=== PATIENT | female | born 1955 | race Caucasian/White ===

== ENCOUNTER → 2020-05-17 | Outpatient (CLI) | payer MEDICARE, OTHER ==
[~2020-05-17] MED LIST: LORA10CA PO
== END | disposition home or self-care (01) ==
LOC: LAB 09:03
PROVIDERS: ATTEND Registered Nurse
DX: Z01.812 Encounter for preprocedural laboratory examination (principal); Z12.11 Encounter for screening for malignant neoplasm of colon; Z20.828 Contact with and (suspected) exposure to other viral communicable diseases
CPT/HCPCS: C9803; U0003; 36415

== ENCOUNTER → 2020-05-21 | Day surgery (SDC) | payer MEDICARE, OTHER ==
[~2020-05-21] MED LIST changes: +IPRATRPIUM/ALBUTEROL 0.5/2.5MG 3 ML NEBU. NEB PRN; +IV RINGERS SOLUTION,LACTATED 1,000 ML IV SCH; +MIDAZOLAM HCL PF 2 MG/2 ML VIAL. IV ONE; +ONDANSETRON PF 4 MG/2 ML VIAL. IV PRN; +PROPOFOL 10,000 MCG/ML (20ML) VIAL IV ONE
[2020-05-21 08:36] VITALS: BP 129/71
--- NOTE | 2020-05-22 18:06 | PATHOLOGY ---
[facility] Accession Number: [id number] . 01 Material submitted: . PART A: sigmoid colon - SIGMOID POLYP PART B: cecum - CECUM POLYP PART C: colon - TRANSVERSE POLYP. Modifiers: transverse . 02 Diagnosis: A. Colon biopsies, sigmoid polyps: - Tubular adenoma. - Small hyperplastic polyp. . B. Colon biopsy, cecal polyp: - Mixed hyperplastic/adenomatous polyp. . C. Colon biopsies, transverse colon polyps: - Tubular adenoma. - Prominent mucosal fold with mucosal-associated lymphoid aggregates. (JPM:[facility] 05/22/2020) [facility] 05/22/2020 0935 Local . 02 Comment: There is no high-grade dysplasia or evidence of malignancy. (JPM:[facility] 05/22/2020) . 02 Electronically signed: . Mike Patel MD, Pathologist NPI- [id number] . 01 Gross description: . A. The specimen is received in formalin, labeled "Resendiz, Maria L, sigmoid polyp" and consists of 2 segments of pink-rdz tissue measuring 0.3 x 0.3 cm and 0.4 x 0.2 cm as well as a polypoid segment of pink tissue measuring 0.7 x 0.5 x 0.4 cm. The segment is inked bisected and they are entirely submitted in A1. . B. The specimen is received in formalin, labeled "Resendiz, Maria L, cecum polyp" and consists of a polypoid segment of pink tissue measuring 0.8 x 0.5 x 0.3 cm. The margin is inked black and it is entirely submitted in B1. . C. The specimen is received in formalin, labeled "Resendiz, Maria L, transverse polyp x2" and consists of 2 fragments of pink-rdz tissue measuring 0.3 x 0.3 cm and 0.5 x 0.3 cm which are entirely submitted in C1. (SDY; 05/21/2020) SYU/SYU 05/21/2020 1620 Local . 02 Pathologist provided ICD-10: D12.5, D12.3, K63.5 . 02 CPT . 195874, [id number], [id number] Specimen Comment: A courtesy copy of this report has been sent to [phone], [phone] Specimen Comment: [id number] Specimen Comment: Report sent to / DR CAPPS Performed at: 01 [facility] [address], [place] [id number] MD Edwin Servin MD Phone: [phone] Performed at: 02 [facility] [address], [place] [id number] MD Mike Patel MD Phone: [phone]
== END | disposition home or self-care (01) ==
LOC: SURG 06:24
PROVIDERS: ATTEND Internal Medicine Gastroenterology
DX: Z12.11 Encounter for screening for malignant neoplasm of colon (principal); D12.5 Benign neoplasm of sigmoid colon; D12.0 Benign neoplasm of cecum; D12.3 Benign neoplasm of transverse colon; K63.89 Other specified diseases of intestine; F17.210 Nicotine dependence, cigarettes, uncomplicated; J30.2 Other seasonal allergic rhinitis; Z86.010 Personal history of colon polyps; Z80.0 Family history of malignant neoplasm of digestive organs; Z98.890 Other specified postprocedural states; Z79.899 Other long term (current) drug therapy; Z90.710 Acquired absence of both cervix and uterus
CPT/HCPCS: 45380; 45385; 88305; J2704; J7120; 45381

== ENCOUNTER 2021-07-14 18:36 | Emergency (ER) | payer MEDICARE, OTHER ==
[~2021-07-14] VITALS: Ht 163.8 cm; Wt 54.0 kg
[~2021-07-14 18:36] MED LIST changes: -IPRATRPIUM/ALBUTEROL 0.5/2.5MG 3 ML NEBU. NEB PRN; -IV RINGERS SOLUTION,LACTATED 1,000 ML IV SCH; -MIDAZOLAM HCL PF 2 MG/2 ML VIAL. IV ONE; -ONDANSETRON PF 4 MG/2 ML VIAL. IV PRN; -PROPOFOL 10,000 MCG/ML (20ML) VIAL IV ONE
--- NOTE | 2021-07-14 18:52 | PHYS DOC ---
Past History Past Medical History: Arthritis, Bronchitis, Cancer Smoking: Cigarettes General Adult EDM: Chief Complaint: CHEST PAIN HPI: HPI: ".. I ve had some chest discomfort.. not really pain. but more of an ache... all day.. heart rate really fast.. and now much more short of breath the last couple hours.. " Patient is a 65 year old female who presents with above hx seen in [facility]. Patient complaining of increase heart, chest discomfort all day, and now shortness of breath the last two hours. Patient eventually moved to [facility]. Patient denies any changes in meds. Patient denies any specific ill contacts. Patient has not had previous cardiac issues. Patient does smoke. Patient does have a history of hx. basal cell skin cancer which was has been removed. Patient does have a history of anxiety. Patient denies any recent travel. Patient has completed COVID vaccination and January of this year. No specific ill contacts. No history of immunosuppression. Pt. follows with Rosenda Castellano for care. Review of Systems: Review of Systems: Constitutional: Denies fever or chills Eyes: Denies change in visual acuity HENT: Denies nasal congestion or sore throat Respiratory: Complains of dyspnea last 2 hours. Cardiovascular: Complains of chest discomfort GI: Denies abdominal pain,. Complains of nausea. Denies, vomiting, bloody sto ols or diarrhea : Denies dysuria Musculoskeletal: Denies back pain or joint pain Integument: History of skin cancer Neurologic: Denies headache, focal weakness or sensory changes Endocrine: Denies polyuria or polydipsia Lymphatic: Denies swollen glands Psychiatric: Denies depression or anxiety Family History: Family History: Noncontributory to presentation Current Medications: Current Meds: See nursing for home meds Allergies: Allergies: Allergies Coded Allergies Type Severity Reaction Last Updated Verified No Known Drug Allergies 05/21/20 No Physical Exam: PE: Constitutional: Moderate acute distress, non-toxic appearance. [] HENT: Normocephalic, atraumatic, bilateral external ears normal, oropharynx moist, no oral exudates, nose normal. Our left scalp and forehead Eyes: PERRLA, EOMI, conjunctiva normal, no discharge. [] Neck: Normal range of motion, no tenderness, supple, no stridor. [] Cardiovascular: Tachycardia heart rate regular rhythm, no murmur []. Bedside monitor shows a sinus tachycardia 104. Patient having mild hypertension as per monitor in the rage of 185/98 Lungs & Thorax: Bilateral breath sounds clear to auscultation [] Abdomen: Bowel sounds normal, soft, no tenderness, no masses, no pulsatile masses. [] Skin: Warm, dry, no erythema, no rash. [] Back: No tenderness, no CVA tenderness. [] Extremities: No tenderness, no cyanosis, no clubbing, ROM intact, no edema. No cording appreciated Neurologic: Alert and oriented X 3, normal motor function, normal sensory function, no focal deficits noted. [] Psychologic: Affect anxious, judgement normal, mood normal. [] Current Patient Data: Labs: Note labs are still not crossing over,,,-review of significant labs shows normal CBC, with macrocytic indices of 105 and elevated MCH of 36, sodium 132, creatinine 0.7 BUN 15 glucose elevated at 16 7. Patient had 2 - tropes 0.017. Mild elevation D-dimer 0.58 remainder of coags normal. Rapid Covid was negative EKG: EKG: My interpretation EKG shows a sinus tachycardia 104 bpm. Does have some left axis changes. Overall low voltage. But no findings of acute STEMI of contralateral changes. Time of EKG is 1844 hrs. My interpretation of second EKG shows a sinus rhythm at 90 bpm. There is same leftward changes as on EKG #1. No acute interval changes. There is some movement artifact. There is some mild lead changes which are attributed to replacement of the leads. No findings of acute STEMI of contralateral changes time of this EKG is 2350 hrs. [] Radiology/Procedures: Radiology/Procedures: [address] [address] IMAGING REPORT Signed PATIENT: DOUG PABLO ACCOUNT: [id number] : 1955 LOCATION: ER AGE: 65 SEX: F EXAM STATUS: REG ER ORD. PHYSICIAN: TYLER NGO MD REASON: cp PROCEDURE: PORTABLE CHEST 1V Exam: Chest one view INDICATION: Chest pain TECHNIQUE: Frontal view of the chest Comparisons: None FINDINGS: The cardiomediastinal silhouette and pulmonary vessels are within normal limits. The lung and pleural spaces are clear. IMPRESSION: No acute cardiopulmonary process. Electronically signed by: Esequiel Cramer MD (07/14/2021 7:34 PM) [facility] DICTATED AND SIGNED BY: ESEQUIEL CRAMER MD DATE: 07/14/211932 CC: TYLER NGO MD; ROSENDA CASTELLANO ~MTH0 0 [][address] [address] IMAGING REPORT Signed PATIENT: DOUG PABLO ACCOUNT: [id number] : 1955 LOCATION: ER AGE: 65 SEX: F EXAM STATUS: REG ER ORD. PHYSICIAN: TYLER NGO MD REASON: chest wall pain , dyspnea, tachy, OMNI 350, 75ml PROCEDURE: CT ANGIOGRAPHY CHEST Exam: CT of chest with contrast INDICATION: Chest wall pain TECHNIQUE: Sequential axial images through the chest obtained following the administration of 75 mL of Omni 350 IV contrast. Sagittal and coronal reformatted images were reconstructed from the axial data and reviewed. 3-D reformatted images were reconstructed from the axial data and reviewed. Exposure: One or more of the following in the visualized dose reduction techniques were utilized for this examination: 1. Automated exposure control 2. Adjustment of the MA and/or KV according to patient size 3. Use of iterative of reconstructive technique Comparisons: Chest x-ray same day FINDINGS: Visualized portions of the thyroid are unremarkable. There several prominent and mildly enlarged bilateral hilar and paratracheal lymph nodes. Heart size is normal. No pericardial effusion. Thoracic aorta has a normal course and caliber. Pulmonary artery is not enlarged. No pulmonary embolus identified within the main, lobar or segmental pulmonary arteries. Airways are patent. Moderate centrilobular emphysematous change noted predominantly at the lung apices. No consolidation or pneumothorax. Several 2 to 3 mm pulmonary nodules noted bilaterally. No suspicious lung nodules are identified. No pleural effusion or thickening. Visualized upper abdomen is unremarkable. Mild compression fracture involving the superior endplate of L1 with less than 25% height loss. IMPRESSION: 1. No pulmonary embolus identified within the main, lobar or segmental pulmonary arteries. 2. Mild compression of the superior endplate of L1 with less than 25% height loss. This is age indeterminate. Correlate with point tenderness. 3. Several 2 to 3 mm pulmonary nodules in the lungs bilaterally. Correlate with risk factors for yearly lung cancer screening. Electronically signed by: Esequiel Cramer MD (07/14/2021 9:19 PM) [facility] DICTATED AND SIGNED BY: ESEQUIEL CRAMER MD DATE: 07/14/212114 CC: TYLER NGO MD; ROSENDA CASTELLANO ~MTH0 0 Heart Score: C/O Chest Pain: Yes HEART Score for Chest Pain: HEART Score for Chest Pain Response (Comments) Value History Moderately Suspicious 1 ECG Nonspecific Repolarizatio 1 Age > 65 2 Risk Factors 1 or 2 Risk Factors 1 Troponin < Normal Limit 0 Total 5 Risk Factors: Risk Factors: DM, Current or recent (<one month) smoker, HTN, HLP, family history of CAD, obesity. Risk Scores: Score 0 - 3: 2.5% MACE over next 6 weeks - Discharge Home Score 4 - 6: 20.3% MACE over next 6 weeks - Admit for Clinical Observation Score 7 - 10: 72.7% MACE over next 6 weeks - Early Invasive Strategies Course & Med Decision Making: Course & Med Decision Making Pertinent Labs and Imaging studies reviewed. (See chart for details) While under evaluation in the emergency department patient's symptoms gradually improved. Pt. requesting discharge, does not want admission at this time. Her hypertension seemed to resolve. She had negative tropes x2 and no acute morphology changes on her EKG x2. Patient did get a CT that showed no findings of pulmonary embolism. There are findings of pulmonary nodules and bilateral hilar adenopathy. Does have findings of emphysema. . Did find a compression fracture at L1-less than 25%-suspect this may be due to old trauma such as being thrown off a horse. This area is not currently tender. Patient to review these work-ups with her primary care. Follow-up as a must. Recommend patient take a daily aspirin. Recommend patient get outpatient stress testing. Recommend patient to stop smoking. If blood pressure remains elevated to consider antihypertensive therapy. This may all be in part a viral infection and/or bronchitis. Patient return if any concerns. Recommend patient take a daily B complex vitamin. Impression: 1. Chest discomfort 2. Dyspnea-suspect bronchitis/viral presentation 3. Tobacco abuse 4. Emphysema 5. Has history of basal cell carcinoma 6. Macrocytic 105 and hyperchromic 36 indices 7. Tachycardia 8. Compression fracture at L1-suspect old trauma [] Dragon Disclaimer: Dragon Disclaimer: This electronic medical record was generated, in whole or in part, using a voice recognition dictation system. Departure Departure: Referrals: ROSENDA CASTELLANO (PCP) [place] Disclaimer This chart was dictated in whole or in part using Voice Recognition software in a busy, high-work load, and often noisy Emergency Department environment. It may contain unintended and wholly unrecognized errors or omissions. Dragon Disclaimer This chart was dictated in whole or in part using Voice Recognition software in a busy, high-work load, and often noisy Emergency Department environment. It may contain unintended and wholly unrecognized errors or omissions. TYLER NGO MD Jul 14, 2021 18:52
[2021-07-14] MEDS ORDERED: ASPIRIN CHEWABLE 81 MG TABLET. PO ONE (19:00)
[2021-07-14] MEDS ORDERED: IV RINGERS SOLUTION,LACTATED 1,000 ML IV SCH (19:00)
[2021-07-14 19:28] LABS: BASO # 0.1 x10^3/uL (0.0-0.2); BASO % 1 % (0-3); EOS # 0.1 x10^3/uL (0.0-0.7); EOS % 1 % (0-3); HEMATOCRIT 43.1 % (36.0-47.0); HEMOGLOBIN 14.8 g/dL (12.0-15.5); LYMPH # 1.8 x10^3/uL (1.0-4.8); LYMPH % 28 % (24-48); MEAN CORPUSCULAR HEMOGLOBIN 36 pg (25-35); MEAN CORPUSCULAR HGB CONC 34 g/dL (31-37); MEAN CORPUSCULAR VOLUME 105 fL (79-100); MONO # 0.5 x10^3/uL (0.0-1.1); MONO % 8 % (0-9); NEUT # 4.1 x10^3uL (1.8-7.7); NEUT % 63 % (31-73); PLATELET COUNT 217 x10^3/uL (140-400); RED BLOOD COUNT 4.13 x10^6/uL (3.50-5.40); RED CELL DISTRIBUTION WIDTH 13.3 % (11.5-14.5); WHITE BLOOD COUNT 6.6 x10^3/uL (4.0-11.0)
[2021-07-14 19:35] LABS: CALCIUM 9.2 mg/dL (8.5-10.1); CREATININE 0.7 mg/dL (0.6-1.0); GFR 83.7
--- NOTE | 2021-07-14 19:37 | RAD ---
Exam: Chest one view INDICATION: Chest pain TECHNIQUE: Frontal view of the chest Comparisons: None FINDINGS: The cardiomediastinal silhouette and pulmonary vessels are within normal limits. The lung and pleural spaces are clear. IMPRESSION: No acute cardiopulmonary process. Electronically signed by: Esequiel Khan MD (07/14/2021 7:34 PM) [place]
[2021-07-14 19:47] LABS: ALBUMIN 3.9 g/dL (3.4-5.0); DIRECT BILIRUBIN 0.1 mg/dL (0.0-0.2); MAGNESIUM 1.8 mg/dL (1.8-2.4); TOTAL BILIRUBIN 0.4 mg/dL (0.2-1.0)
[2021-07-14] MEDS ORDERED: KETOROLAC 30 MG/ML VIAL. IVP ONE (20:30)
[2021-07-14] MEDS ORDERED: CONTRAST GIVEN. MC PRN (20:45)
[2021-07-14] MEDS ORDERED: IOHEXOL 350 MG/ML 100 ML VIAL. IV ONE (21:00)
--- NOTE | 2021-07-14 21:21 | RAD ---
Exam: CT of chest with contrast INDICATION: Chest wall pain TECHNIQUE: Sequential axial images through the chest obtained following the administration of 75 mL o f Omni 350 IV contrast. Sagittal and coronal reformatted images were reconstructed from the axial michele a and reviewed. 3-D reformatted images were reconstructed from the axial data and reviewed. Exposure: One or more of the following in the visualized dose reduction techniques were utilized for this examination: 1. Automated exposure control 2. Adjustment of the MA and/or KV according to patient size 3. Use of iterative of reconstructive technique Comparisons: Chest x-ray same day FINDINGS: Visualized portions of the thyroid are unremarkable. There several prominent and mildly enlarged bila teral hilar and paratracheal lymph nodes. Heart size is normal. No pericardial effusion. Thoracic aorta has a normal course and caliber. Pulmon cesar artery is not enlarged. No pulmonary embolus identified within the main, lobar or segmental pulmo nary arteries. Airways are patent. Moderate centrilobular emphysematous change noted predominantly at the lung apice s. No consolidation or pneumothorax. Several 2 to 3 mm pulmonary nodules noted bilaterally. No suspicious lung nodules are identified. No pleural effusion or thickening. Visualized upper abdomen is unremarkable. Mild compression fracture involving the superior endplate of L1 with less than 25% height loss. IMPRESSION: 1. No pulmonary embolus identified within the main, lobar or segmental pulmonary arteries. 2. Mild compression of the superior endplate of L1 with less than 25% height loss. This is age indet erminate. Correlate with point tenderness. 3. Several 2 to 3 mm pulmonary nodules in the lungs bilaterally. Correlate with risk factors for yea rly lung cancer screening. Electronically signed by: Esequiel Khan MD (07/14/2021 9:19 PM) [facility]
[2021-07-14 21:49] LABS: BARBITURATES NEG (NEG); BENZODIAZEPINES NEG (NEG); CANNABINOIDS NEG (NEG); COCAINE NEG (NEG); METHADONE NEG (NEG); OPIATES NEG (NEG); PHENCYCLIDINE NEG (NEG)
[2021-07-14 21:50] LABS: AMPHETAMINE/METHAMPHETAMINE NEG (NEG)
[2021-07-14 21:59] LABS: BILIRUBIN,URINE NEG (NEG); CLARITY,URINE CLEAR; COLOR,URINE STRAW; GLUCOSE,URINE NEG (NEG)
[2021-07-14 22:00] LABS: BACTERIA,URINE 0 /HPF (0-FEW); NITRITE,URINE NEG (NEG); RBC,URINE 0 /HPF (0-2); SQUAMOUS EPITHELIAL CELL,UR OCC /LPF; UROBILINOGEN,URINE 0.2 mg/dL (0.2 mg/dL); WBC,URINE 0 /HPF (0-4)
[2021-07-14 23:21] VITALS: BP 139/85
--- NOTE | 2021-07-15 12:29 | NUR ---
IP: Patient notified of negative COVID19 test result. Verbalized understanding.
--- NOTE | 2021-07-15 19:26 | EKG ---
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
--- NOTE | 2021-07-15 19:27 | EKG ---
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
== END 2021-07-15 00:43 | disposition home or self-care (01) ==
LOC: ER 18:36
DX: S32.018A Other fracture of first lumbar vertebra, initial encounter for closed fracture (principal); R07.89 Other chest pain; R06.02 Shortness of breath; J43.9 Emphysema, unspecified; R00.0 Tachycardia, unspecified; D53.9 Nutritional anemia, unspecified; F17.210 Nicotine dependence, cigarettes, uncomplicated; M19.90 Unspecified osteoarthritis, unspecified site; Z20.822 Contact with and (suspected) exposure to COVID-19; Z85.828 Personal history of other malignant neoplasm of skin; X58.XXXA Exposure to other specified factors, initial encounter; Y93.89 Activity, other specified; Y92.89 Other specified places as the place of occurrence of the external cause; Y99.8 Other external cause status
CPT/HCPCS: 36415; 71045; 71275; 80048; 80076; 80307; 81001; 83690; 83735; 83880; 84443; 84484; 85025; 85379; 85610; 93005; 96360; 96361; 99285; C9803; J7120; Q9967; U0003